=== PATIENT | male | born 1955 | race Caucasian/White ===

== ENCOUNTER 2017-04-13 17:51 | Inpatient (IN) | payer MEDICARE, MEDICAID ==
[~2017-04-13] VITALS: Ht 190.5 cm; Wt 107.2 kg
--- NOTE | 2017-04-13 18:00 | NUR ---
PT BIBRA TO ER BED 11. C/O CHEST PAIN R/T NECK AND BACK THAT STARTED 3-4 HOURS AGO AND IS WORST NOW. 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 GOWNED AND PLACED ON MONITOR. AWAITING MD WOODALL.
--- NOTE | 2017-04-13 18:00 | NUR ---
DR JONES AT BEDSIDE FOR EVAL.
[2017-04-13 18:19] LABS: BASOPHILS # (AUTO) 0.1 /CMM (0.0-0.2); BASOPHILS % (AUTO) 1.6 % (0.0-2.0); EOSINOPHILS # (AUTO) 0.5 /CMM (0.0-0.7); EOSINOPHILS % (AUTO) 7.1 % (0.0-6.0); HEMATOCRIT 45 % (39-51); LYMPHOCYTES # (AUTO) 2.5 /CMM (0.8-4.8); MEAN CORPUSCULAR HEMOGLOBIN 29 PG (26.0-33.0); MEAN CORPUSCULAR HGB CONC 34 g/dl (31.0-36.0); MEAN CORPUSCULAR VOLUME 88 fL (80-96); MONOCYTES # (AUTO) 0.6 /CMM (0.1-1.30); MONOCYTES % (AUTO) 7.5 % (2.0-12.0); NEUTROPHILS % (AUTO) 51.8 % (43.0-81.0); PLATELET COUNT (AUTO) 225 /CMM (150-450); RDW COEFFICIENT OF VARIATION 12.9 (11.5-15.0); RED BLOOD CELL COUNT(AUTO) 5.09 MIL/uL (4.5-6.0); WHITE BLOOD COUNT (AUTO) 7.7 K/uL (4.3-11.0)
[2017-04-13] MEDS ORDERED: DIGO250T PO (18:19)
[2017-04-13] MEDS ORDERED: COLC0.6C3 PO (18:19)
[2017-04-13] MEDS ORDERED: ALLO300T2 PO (18:19)
[2017-04-13] MEDS ORDERED: ATOR40TA PO (18:19)
[2017-04-13] MEDS ORDERED: CLOP75TA2 PO (18:19)
[2017-04-13] MEDS ORDERED: DIPH25CA6 PO (18:19)
[2017-04-13] MEDS ORDERED: WARF7.5T23 PO (18:19)
[2017-04-13] MEDS ORDERED: FURO-145 PO (18:19)
[2017-04-13] MEDS ORDERED: LISI-607 PO (18:19)
[2017-04-13] MEDS ORDERED: DIVA500T54 PO (18:20)
[2017-04-13] MEDS ORDERED: QUET200T PO (18:20)
[2017-04-13 18:33] LABS: CALCIUM, SERUM 8.8 mg/dL (8.5-10.1); CARBON DIOXIDE 23 mmol/L (21-32); CHLORIDE 105 mmol/L (98-107); CREATININE 1.2 mg/dL (0.6-1.3); GLUCOSE 83 mg/dL (74-106); POTASSIUM 3.7 mmol/L (3.5-5.1); SODIUM SERUM 138 mmol/L (136-145); UREA NITROGEN, BLOOD 12 mg/dL (7-18)
[2017-04-13] MEDS ORDERED: MORPHINE SULFATE INJ 4 MG/ML DISP.SYRIN ONE (18:39)
[2017-04-13 18:41] LABS: TROPONIN I < 0.017 ng/mL (0.00-0.056)
--- NOTE | 2017-04-13 18:42 | NUR ---
PT STILL C/O 8/[address] JONES AWARE. VERBAL ORDER FOR MORPHINE 4MG IVP. CARRIED OUT.
[2017-04-13 18:44] LABS: INR 1.78 (0.87-1.13)
[2017-04-13 18:45] LABS: B-TYPE NATRIURETIC PEPTIDE 1210 PG/ML (0-125)
--- NOTE | 2017-04-13 19:02 | NUR ---
PAGED DR TOVAR FOR PANEL ADMISSION
[2017-04-13] MEDS ORDERED: MORPHINE SULFATE INJ 10 MG/ML DISP.SYRIN IV ONE (19:30)
[2017-04-13 20:45] VITALS: BP 161/85
--- NOTE | 2017-04-13 20:45 | NUR ---
RN OPEN NOTES RECEIVED PATIENT FROM ER VIA GURRIGO. A/O X4. NO SIGNS OF DISTRESS OR DISCOMFORT. BREATHING EVEN AND UNLABORED. IV ACCESS IN LFA PATENT AND INTACT, NO SIGNS OF REDNESS OR INFILTRATION. ORIENTED PATIENT TO UNIT AND ROOM. ATTACHED TELE MONITORING WITH AFIB 66 NOTED. BED IN LOW LOCKED POSITION WITH SIDE RAILS X2. CALL LIGHT WITHIN REACH. WILL CONTINUE TO MONITOR.
--- NOTE | 2017-04-13 20:55 | NUR ---
REPORT GIVEN TO LEATHA. PT TRANSFERED TO [facility]. STABLE CONDITION.
[2017-04-13 21:00] VITALS: BP 119/78
[2017-04-13] MEDS ORDERED: ZOLPIDEM TARTRATE 5 MG TABLET PO PRN (21:00)
[2017-04-13] MEDS ORDERED: ACETAMINOPHEN 325 MG TABLET PO PRN (21:00)
[2017-04-13] MEDS ORDERED: MAG HYDROX/AL HYDROX/SIMETH 30 ML UDC PO PRN (21:00)
[2017-04-13] MEDS ORDERED: diphenhydrAMINE HCL 25 MG CAPSULE PO PRN (21:00)
[2017-04-13] MEDS ORDERED: ONDANSETRON HCL/PF 4 MG/2 ML VIAL IVP PRN (21:00)
[2017-04-13] MEDS ORDERED: Z GUARD REMEDY 2 OZ OINT TP PRN (21:00)
[2017-04-13] MEDS ORDERED: COLCHICINE 0.6 MG TABLET PO PRN (21:30)
[2017-04-13] MEDS: CLOPIDOGREL BISULFATE 75 MG TABLET PO SCH (21:50)
[2017-04-13] MEDS: DIVALPROEX SODIUM 500 MG TABLET.DR PO SCH (21:50)
[2017-04-13] MEDS: ATORVASTATIN 40 MG TABLET PO SCH (21:50)
[2017-04-13] MEDS: QUETIAPINE FUMARATE 100 MG TABLET PO SCH (21:50)
[2017-04-13] MEDS: LISINOPRIL (5MG) 5 MG TABLET PO SCH (21:50)
[2017-04-13] MEDS: HYDROCODONE/APAP 5/325MG 1 EACH TABLET PO PRN (21:51)
--- NOTE | 2017-04-13 21:51 | NUR ---
RN NOTES ADMINISTERED NORCO 5/325 PO ORDERED FOR CHEST PAIN. WILL CONTINUE TO MONITOR.
[2017-04-13] MEDS: FUROSEMIDE 20 MG TABLET PO SCH (22:00)
[2017-04-14] VITALS: BP 124/69
[2017-04-14] MEDS ORDERED: MORPHINE SULFATE INJ 2 MG/ML DISP.SYRIN ONE ×2 (00:22→04:30)
[2017-04-14] MEDS: MORPHINE SULFATE INJ 2 MG/ML DISP.SYRIN IV PRN ×6 (00:28→23:34)
--- NOTE | 2017-04-14 00:28 | NUR ---
RN NOTES ADMINISTERED MORPHINE 2 MG ORDERED FOR CHEST PAIN. VSS. WILL CONTINUE TO MONITOR.
[2017-04-14 04:00] VITALS: BP 118/75
--- NOTE | 2017-04-14 04:33 | NUR ---
RN NOTES ADMINISTERED MORPHINE 2 MG IV ORDERED FOR CHEST PAIN. VSS. WILL CONTINUE TO MONITOR.
--- NOTE | 2017-04-14 06:54 | NUR ---
RN CLOSING NOTES PATIENT RESTING IN BED. A/O X4. NO SIGNS OF DISTRESS OR DISCOMFORT. BREATHING EVEN AND UNLABORED. ON TELE MONITORING WITH AFIB 50 NOTED. IV ACCESS IN LFA PATENT AND INTACT, NO SIGNS OF REDNESS OR INFILTRATION. ALL NEEDS MET. NO SIGNIFICANT CHANGES THROUGH THE NIGHT. BED IN LOW LOCKED POSITION WITH SIDE RAILS X2. CALL LIGHT WITHIN REACH. WILL ENDORSE TO AM SHIFT FOR PROSPER.
[2017-04-14 07:13] LABS: BASOPHILS % (AUTO) 0.6 % (0.0-2.0); EOSINOPHILS # (AUTO) 0.6 /CMM (0.0-0.7); EOSINOPHILS % (AUTO) 8.5 % (0.0-6.0); HEMATOCRIT 44 % (39-51); HEMOGLOBIN 14.8 g/dL (13.5-17.5); LYMPHOCYTES # (AUTO) 2.8 /CMM (0.8-4.8); LYMPHOCYTES % (AUTO) 42.7 % (20.0-44.0); MEAN CORPUSCULAR HEMOGLOBIN 30 PG (26.0-33.0); MEAN CORPUSCULAR HGB CONC 34 g/dl (31.0-36.0); MEAN CORPUSCULAR VOLUME 89 fL (80-96); MONOCYTES # (AUTO) 0.4 /CMM (0.1-1.30); MONOCYTES % (AUTO) 6.1 % (2.0-12.0); NEUTROPHILS # (AUTO) 2.7 /CMM (1.8-8.9); NEUTROPHILS % (AUTO) 42.1 % (43.0-81.0); PLATELET COUNT (AUTO) 187 /CMM (150-450); RED BLOOD CELL COUNT(AUTO) 4.89 MIL/uL (4.5-6.0); WHITE BLOOD COUNT (AUTO) 6.5 K/uL (4.3-11.0)
[2017-04-14 07:23] VITALS: BP 114/78
--- NOTE | 2017-04-14 07:30 | NUR ---
TECHNICAL TRAINER NOTES: - Received on bed , verbally responsive,oriented x 4, claimed to have the recurring chest pain again & patient was informed of the next time PRN pain med will be given, & patient agreed.
[2017-04-14 07:54] LABS: CALCIUM, SERUM 8.3 mg/dL (8.5-10.1); CREATININE 1.2 mg/dL (0.6-1.3); MAGNESIUM 1.6 mg/dL (1.8-2.4); PHOSPHORUS 3.5 mg/dL (2.5-4.9); POTASSIUM 4.1 mmol/L (3.5-5.1)
[2017-04-14] MEDS: QUETIAPINE FUMARATE 100 MG TABLET PO SCH ×2 (08:06→16:37)
[2017-04-14] MEDS: DIVALPROEX SODIUM 500 MG TABLET.DR PO SCH ×2 (08:06→16:37)
[2017-04-14] MEDS: ALLOPURINOL 100 MG TABLET PO SCH (08:07)
[2017-04-14] MEDS: Magnesium 1GM/D5W 100ML PREMIX 100 ML IV SCH ×2 (11:16→12:38)
[2017-04-14 12:00] VITALS: BP 130/86
[2017-04-14] MEDS: DIGOXIN 0.25 MG TABLET PO SCH (12:39)
--- NOTE | 2017-04-14 14:26 | NUR ---
PRODUCT ASSEMBLER Notes: - Visited by Dr. Ortega, grain drier & was also explained on plan re: D/C tele & will be observed till Monday04/17/17 , patient has been ambulating to bathroom without problems., tho' had been claiming that MorphineSulfate only gives very little.
--- NOTE | 2017-04-14 15:30 | NUR ---
-SCHOLARSHIP COUNSELOR Notes: - Telemetry was d/cd per MD 'S orders, patient claimed reduced pain tho' not much." Patient still in bed , tho' had been to bathroom 3x without dizziness.
[2017-04-14 16:00] VITALS: BP 134/90
[2017-04-14] MEDS: WARFARIN SODIUM 7.5 MG TABLET PO SCH (16:38)
--- NOTE | 2017-04-14 18:22 | NUR ---
RN NOTES; - patient completed dinner & tolerated, was given PRN morphine per request, remained to be on room air, non-labored respirations, & was made comfortable.
--- NOTE | 2017-04-14 19:30 | NUR ---
MS RN INITIAL NOTE RECEIVED PT AWAKE AND ALERT, ORIENTED X3, COMPLAINS OF MILD PAIN IN THE CHEST AREA, TROP NEGATIVE, CXRAY SHOWS NO CARDIOPULMONARY DISEASE, CARDIO CONSULT DONE BY DR. SANDS, TELE D/C, ORDER FOR MORPHINE IN PLACE, PT STATES PAIN IS RELIEVED BY PAIN MEDICATION, POSSIBLE STRESS TEST ON MONDAY PER AM NURSE, PT IS STABLE, CLEAN/DRY AND COMFORTABLE, SAFETY MEASURES WILL BE MAINTAINED AT ALL TIMES, NEEDS WILL BE ANTICIPATED AND ATTENDED TO PROMPTLY.
[2017-04-14 20:00] VITALS: BP 106/67
[2017-04-14] MEDS: LISINOPRIL (5MG) 5 MG TABLET PO SCH (21:38)
[2017-04-14] MEDS: ATORVASTATIN 40 MG TABLET PO SCH (21:55)
[2017-04-14] MEDS: FUROSEMIDE 20 MG TABLET PO SCH (21:55)
[2017-04-14] MEDS: CLOPIDOGREL BISULFATE 75 MG TABLET PO SCH (21:55)
[2017-04-15] MEDS: MORPHINE SULFATE INJ 2 MG/ML DISP.SYRIN IV PRN ×3 (05:57→17:49)
--- NOTE | 2017-04-15 06:27 | NUR ---
MS RN CLOSING NOTE PT REMAINED STABLE DURING HEALTHCARE RECEPTIONIST, NO SIGNIFICANT CHANGE IN CONDITION NOTED, WILL ENDORSE TO INCOMING NURSE FOR PROSPER.
[2017-04-15 07:04] LABS: CALCIUM, SERUM 8.4 mg/dL (8.5-10.1); CREATININE 1.3 mg/dL (0.6-1.3)
--- NOTE | 2017-04-15 07:22 | NUR ---
MS/RN Patient received Patient received from night clerk. No new concerns or needs, continues to ask for IV pain medications, next due at 10:00. Patient made aware of schedule. Call light within reach, will continue to monitor.
[2017-04-15 08:00] VITALS: BP 128/84
[2017-04-15] MEDS: QUETIAPINE FUMARATE 100 MG TABLET PO SCH ×2 (08:29→16:27)
[2017-04-15] MEDS: DIVALPROEX SODIUM 500 MG TABLET.DR PO SCH ×2 (08:29→16:27)
[2017-04-15] MEDS: ALLOPURINOL 100 MG TABLET PO SCH (08:30)
--- NOTE | 2017-04-15 08:37 | NUR ---
MS/purchasing clerk Morning medication administered as ordered.
--- NOTE | 2017-04-15 10:10 | NUR ---
MS/RN S/B Samuel Helsm ROUGH ROUNDER MACHINE Seen by ROUGH ROUNDER MACHINE - labs ordered for tomorrow.
[2017-04-15 10:11] LABS: INR 1.37 (0.87-1.13)
--- NOTE | 2017-04-15 10:30 | NUR ---
MS/RN CTA Chest CTA chest ordered to rule out dissection. Consent form signed, new heplock placed on right AC.
[2017-04-15] MEDS ORDERED: IOHEXOL-350 100 ML VIAL IV ONE (11:40)
[2017-04-15] MEDS ORDERED: CT SWABBABLE VALVE TRANS SET 1 EA INFUS.SET MC ONE (11:40)
[2017-04-15] MEDS ORDERED: IV NS 0.9% 250 ML IV ONE (11:40)
--- NOTE | 2017-04-15 11:55 | NUR ---
MS/RN Off floor Patient off floor at this time for CTA. Chart containing consent with patient.
--- NOTE | 2017-04-15 12:17 | NUR ---
MS/RN CTA Patient back in room following CTA chest, awaiting results.
[2017-04-15] MEDS: DIGOXIN 0.25 MG TABLET PO SCH (13:00)
--- NOTE | 2017-04-15 14:01 | NUR ---
MS/RN CTA result CTA resulted as negative.
[2017-04-15 16:00] VITALS: BP 133/95
[2017-04-15] MEDS: WARFARIN SODIUM 7.5 MG TABLET PO SCH (16:29)
--- NOTE | 2017-04-15 17:55 | NUR ---
MS/RN Morphine 2mg morphine administered for pain scale 8/10, will monitor effectiveness.
--- NOTE | 2017-04-15 18:20 | NUR ---
MS/RN End note Pain scale now decreased to 4/10, patient appears more comfortable. No further needs at this time. Will continue to monitor and endorse to helicopter crew chief.
[2017-04-15] MEDS: HYDROCODONE/APAP 5/325MG 1 EACH TABLET PO PRN (19:39)
[2017-04-15] MEDS: FUROSEMIDE 20 MG TABLET PO SCH (19:46)
--- NOTE | 2017-04-15 19:48 | NUR ---
RN NOTES PATIENT BEEN DECLINING LASIX 20 MG PO AT 2200. PATIENT EXPLAINED TAKES LASIX IN THE MORNING NOT AT NIGHT. CONVINCED PATIENT TO TAKE ONE DOSE NOW AND WILL RE-SCHEDULE LASIX IN AM. EDUCATED PATIENT ON RISKS AND BENEFITS, PATIENT VERBALIZED UNDERSTANDING AND AGREED.
[2017-04-15 20:00] VITALS: BP 131/72
--- NOTE | 2017-04-15 20:00 | NUR ---
RN NOTES PATIENT IN BED, ALERT AND ORIENTED X4, CALM, NO SOB, COMPLAINING OF CHEST PAIN OF 7/10, SPO2 AT ROOM AIR 96%. TROPONIN IS NEGATIVE AND CTA CHEST NEGATIVE. REQUESTING NORCO. RIGHT AC SALINE LOCK IS PATENT AND FLUSHED. AMBULATES WITH STEADY GAIT. NEEDS ATTENDED, CALL LIGHT WITHIN REACH.
[2017-04-15 20:09] VITALS: BP 131/72
[2017-04-15] MEDS: MAGNESIUM HYDROXIDE 30 ML UDC PO PRN (20:53)
[2017-04-15] MEDS: LISINOPRIL (5MG) 5 MG TABLET PO SCH (21:30)
[2017-04-15] MEDS: ATORVASTATIN 40 MG TABLET PO SCH (21:30)
[2017-04-15] MEDS: CLOPIDOGREL BISULFATE 75 MG TABLET PO SCH (21:30)
[2017-04-16] MEDS: MORPHINE SULFATE INJ 2 MG/ML DISP.SYRIN IV PRN ×3 (02:53→20:42)
--- NOTE | 2017-04-16 02:59 | NUR ---
RN NOTES COMPLAINING OF CHEST PAIN OF 05/14, BP WNL, SPO2 AT ROOM AIR 97%, GIVEN MORPHINE 2 MG IVP, WILL CONTINUE TO MONITOR.
--- NOTE | 2017-04-16 06:48 | NUR ---
RN NOTES PATIENT IN BED, ALERT AND AWAKE, NO RESPIRATORY DISTRESS, COMPLAINED OF CHEST PAIN, TROPONIN NEGATIVE, RULED FOR [place], RULED FOR PE. PROVIDED PAIN MEDICATION DURING SHIFT. ALL NEEDS ATTENDED, COMPLIANT WITH MEDICATION. CALL LIGHT WITHIN REACH.
[2017-04-16 06:59] LABS: BASOPHILS % (AUTO) 0.7 % (0.0-2.0); EOSINOPHILS # (AUTO) 0.5 /CMM (0.0-0.7); EOSINOPHILS % (AUTO) 8.2 % (0.0-6.0); HEMATOCRIT 47 % (39-51); HEMOGLOBIN 15.6 g/dL (13.5-17.5); LYMPHOCYTES # (AUTO) 2.5 /CMM (0.8-4.8); LYMPHOCYTES % (AUTO) 37.3 % (20.0-44.0); MEAN CORPUSCULAR HEMOGLOBIN 30 PG (26.0-33.0); MEAN CORPUSCULAR HGB CONC 33 g/dl (31.0-36.0); MEAN CORPUSCULAR VOLUME 89 fL (80-96); MONOCYTES # (AUTO) 0.5 /CMM (0.1-1.30); MONOCYTES % (AUTO) 7.8 % (2.0-12.0); NEUTROPHILS # (AUTO) 3.1 /CMM (1.8-8.9); PLATELET COUNT (AUTO) 191 /CMM (150-450); RDW COEFFICIENT OF VARIATION 13.8 (11.5-15.0); RED BLOOD CELL COUNT(AUTO) 5.23 MIL/uL (4.5-6.0); WHITE BLOOD COUNT (AUTO) 6.7 K/uL (4.3-11.0)
--- NOTE | 2017-04-16 07:10 | NUR ---
MS RN OPENING NOTES RECEIVED PT. FROM NIGHTSHIFT NURSE IN STABLE CONDITION. PT. IS A/O X4. NO SOB OR SIGNS OF DISTRESS NOTED. BREATHING IS EVEN AND UNLABORED. PT. DENIES ANY CHEST PAIN T THIS TIME. IV PRESENT ON LEFT FOREARM 29G SL. IV IS PATENT TO NS FLUSH AND INTACT. NO REDNESS OR SIGNS OF INFILTRATION NOTED. BED IN LOW LOCKED POSITION, SIDE RAILS UP X2, CALL LIGHT WITHIN REACH. WILL CONTINUE TO MONITOR.
[2017-04-16 07:13] LABS: CALCIUM, SERUM 8.8 mg/dL (8.5-10.1); CREATININE 1.1 mg/dL (0.6-1.3); POTASSIUM 3.8 mmol/L (3.5-5.1)
[2017-04-16 08:00] VITALS: BP 124/88
[2017-04-16] MEDS: DIVALPROEX SODIUM 500 MG TABLET.DR PO SCH ×2 (09:26→17:19)
[2017-04-16] MEDS: QUETIAPINE FUMARATE 100 MG TABLET PO SCH ×2 (09:27→17:19)
[2017-04-16] MEDS: FUROSEMIDE 20 MG TABLET PO SCH (09:27)
[2017-04-16] MEDS: ALLOPURINOL 100 MG TABLET PO SCH (09:31)
[2017-04-16] MEDS: DIGOXIN 0.25 MG TABLET PO SCH (12:40)
[2017-04-16 16:26] VITALS: BP 124/85
[2017-04-16 17:15] LABS: INR 1.93 (0.87-1.13); PROTHROMBIN TIME 21.5 SECS (9.5-12.7)
[2017-04-16] MEDS: WARFARIN SODIUM 7.5 MG TABLET PO SCH (17:22)
--- NOTE | 2017-04-16 18:40 | NUR ---
MS RN CLOSING NOTES PT. REMAINS IN STABLE CONDITION. ALL NEEDS WERE MET DURING SHIFT AND ORDERS CARRIED OUT ACCORDINGLY. PT. COMPLAINED OF CHEST PAIN ONE TIME DURING SHIFT BUT IT WAS RESOLVED AFTER PRN ADMINISTRATION OF MORPHINE 2MG. PT. DENIES ANY PAIN AT THIS TIME. ALL SAFETY MEASURES REMAIN IN PLACE. WILL ENDORSE TO NIGHTSHIFT NURSE FOR PROSPER
[2017-04-16 20:00] VITALS: BP 125/77
[2017-04-16] MEDS: CLOPIDOGREL BISULFATE 75 MG TABLET PO SCH (22:58)
[2017-04-16] MEDS: ATORVASTATIN 40 MG TABLET PO SCH (22:58)
[2017-04-16] MEDS: LISINOPRIL (5MG) 5 MG TABLET PO SCH (22:58)
[2017-04-17] MEDS: MORPHINE SULFATE INJ 2 MG/ML DISP.SYRIN IV PRN ×3 (04:36→20:04)
--- NOTE | 2017-04-17 06:09 | NUR ---
RN CLOSING NOTES No significant change in condition during shift. Pt slept comfortably. No apparent distress noted. Due meds given as ordered, pain meds given as ordered. All needs attended.reminded patient of his procedure today. Will continue to monitor.
[2017-04-17 06:31] LABS: BASOPHILS # (AUTO) 0.1 /CMM (0.0-0.2); BASOPHILS % (AUTO) 0.7 % (0.0-2.0); EOSINOPHILS # (AUTO) 0.6 /CMM (0.0-0.7); EOSINOPHILS % (AUTO) 7.4 % (0.0-6.0); HEMATOCRIT 47 % (39-51); HEMOGLOBIN 15.7 g/dL (13.5-17.5); LYMPHOCYTES # (AUTO) 2.7 /CMM (0.8-4.8); LYMPHOCYTES % (AUTO) 35.4 % (20.0-44.0); MEAN CORPUSCULAR HEMOGLOBIN 30 PG (26.0-33.0); MEAN CORPUSCULAR HGB CONC 33 g/dl (31.0-36.0); MEAN CORPUSCULAR VOLUME 89 fL (80-96); MONOCYTES # (AUTO) 0.7 /CMM (0.1-1.30); NEUTROPHILS # (AUTO) 3.6 /CMM (1.8-8.9); NEUTROPHILS % (AUTO) 47.5 % (43.0-81.0); PLATELET COUNT (AUTO) 193 /CMM (150-450); RDW COEFFICIENT OF VARIATION 13.6 (11.5-15.0); RED BLOOD CELL COUNT(AUTO) 5.26 MIL/uL (4.5-6.0); WHITE BLOOD COUNT (AUTO) 7.6 K/uL (4.3-11.0)
[2017-04-17 07:00] LABS: CALCIUM, SERUM 8.9 mg/dL (8.5-10.1); CREATININE 1.3 mg/dL (0.6-1.3)
--- NOTE | 2017-04-17 07:30 | NUR ---
MS/RN Patient received Patient received from collar cutter. NPO at this time for angusan later today, consent form signed and placed in fron of chart. All needs attended, will continue to monitor and ensure safety.
[2017-04-17 08:00] VITALS: BP 119/84
--- NOTE | 2017-04-17 08:20 | NUR ---
MS/RN Darrick Yates from [employer] called. Stated that patient was okay to eat light dist, but no caffeine.
[2017-04-17] MEDS: QUETIAPINE FUMARATE 100 MG TABLET PO SCH ×2 (08:48→17:12)
[2017-04-17] MEDS: DIVALPROEX SODIUM 500 MG TABLET.DR PO SCH ×2 (08:49→17:12)
[2017-04-17] MEDS: ALLOPURINOL 100 MG TABLET PO SCH (08:49)
[2017-04-17] MEDS: FUROSEMIDE 20 MG TABLET PO SCH (08:49)
--- NOTE | 2017-04-17 09:00 | NUR ---
MS/RN Medications Morning medications given with small sips of water.
--- NOTE | 2017-04-17 12:20 | NUR ---
MS/RN Digoxin Digoxin on hold until patient is back from stress test.
[2017-04-17 12:25] LABS: INR 2.02 (0.87-1.13); PROTHROMBIN TIME 22.6 SECS (9.5-12.7)
[2017-04-17] MEDS: DIGOXIN 0.25 MG TABLET PO SCH (13:00)
[2017-04-17] MEDS ORDERED: REGADENOSON 0.4 MG/5 ML DISP.SYRIN IVP ONE (13:00)
--- NOTE | 2017-04-17 14:00 | NUR ---
MS/RN Naheed Patient off floor for naheed.
[2017-04-17 16:21] VITALS: BP 113/74
[2017-04-17] MEDS: WARFARIN SODIUM 7.5 MG TABLET PO SCH (17:13)
[2017-04-17] MEDS: MAGNESIUM HYDROXIDE 30 ML UDC PO PRN (18:04)
--- NOTE | 2017-04-17 18:29 | NUR ---
MS/RN End note Patient back from [facility], awaiting final result. No further complaints of pain. Will continue to monitor and ensure safety.
--- NOTE | 2017-04-17 19:30 | NUR ---
RN NOTE; RECEIVED PT IN BED LAYING DOWN , BREATHING EVENLY. NO SOB. NAD. SKIN WARM AND DRY. STILL W/ C/O CHEST PAIN RADIATING TO LEFT POST. SHOULDER. TO BE MEDICATED ORDERED. DENIED SOB. PT REACHING WAS PROVIDED AND ADVISED TO INFORM THE NURSE FOR ANY CHANGES .NEEDS ATTENDED . CALL LIGHT WITHIN REACH. WILL CONT TO MONITOR .
[2017-04-17 19:36] VITALS: BP 124/73
[2017-04-17 20:00] VITALS: BP 124/73
--- NOTE | 2017-04-17 20:06 | NUR ---
MORPHINE GIVEN ORDERED FOR C/O CHEST PAIN .WILL CONT TO MONITOR.
[2017-04-17] MEDS: LISINOPRIL (5MG) 5 MG TABLET PO SCH (21:39)
[2017-04-17] MEDS: ATORVASTATIN 40 MG TABLET PO SCH (21:39)
[2017-04-17] MEDS: CLOPIDOGREL BISULFATE 75 MG TABLET PO SCH (21:39)
--- NOTE | 2017-04-18 06:19 | NUR ---
RN NOTE PT IN BED SLEEPING, AROUSES EASILY. BREATHING EVENLY. NO ACUTE EVENT DURING THE NIGHT. NO MORE C/O CHEST PAIN AFTER RECEIVING MORPHINE . NEEDS ATTENDED. ASSISTED W/ ADLS. CALL LIGHT WITHIN REACH. WILL CONT TO MONITOR AND WILL ENDORSE TO AM SHIFT FOR PROSPER.
[2017-04-18] MEDS: MORPHINE SULFATE INJ 2 MG/ML DISP.SYRIN IV PRN ×2 (07:10→14:24)
--- NOTE | 2017-04-18 07:13 | NUR ---
MORPHINE GIVEN FOR C/O CHEST PAIN. WILL CONT TO MONITOR
--- NOTE | 2017-04-18 07:27 | NUR ---
MS/RN OPENING NOTE RESIDENT RECEIVED FROM MANAGER ENGLISH IN STABLE CONDITION. COMPLAINTS OF CHEST PAIN, MORPHINE GIVEN BY MANAGER ENGLISH AT 0710 TOLERATING WELL. NO IMMEDIATE NEEDS AT THIS TIME. CALL LIGHT IN REACH. WILL CONTINUE TO MONITOR TO ENSURE SAFETY.
[2017-04-18 08:00] VITALS: BP 110/68
[2017-04-18] MEDS: DIVALPROEX SODIUM 500 MG TABLET.DR PO SCH (08:17)
[2017-04-18] MEDS: FUROSEMIDE 20 MG TABLET PO SCH (08:17)
[2017-04-18] MEDS: ALLOPURINOL 100 MG TABLET PO SCH (08:19)
[2017-04-18] MEDS: QUETIAPINE FUMARATE 100 MG TABLET PO SCH (08:19)
[2017-04-18 08:54] VITALS: BP 110/68
--- NOTE | 2017-04-18 10:00 | NUR ---
MS/RN Constipation Patient complaining of constipation, stating that laxative already given to him is not working. Warm prune juice given with good result.
[2017-04-18] MEDS ORDERED: DIVA500T2 PO (10:06)
[2017-04-18] MEDS ORDERED: ATOR40TA PO (10:06)
[2017-04-18] MEDS ORDERED: WARF7.5T23 PO (10:06)
[2017-04-18] MEDS ORDERED: QUET100T PO (10:06)
[2017-04-18] MEDS ORDERED: Digoxin PO (10:06)
[2017-04-18] MEDS ORDERED: CLOP75TA2 PO (10:06)
[2017-04-18] MEDS ORDERED: LISI5TAB45 PO (10:06)
[2017-04-18] MEDS ORDERED: FURO20TA4 PO (10:06)
[2017-04-18 11:16] LABS: INR 2.41 (0.87-1.13); PROTHROMBIN TIME 27.3 SECS (9.5-12.7)
[2017-04-18] MEDS: DIGOXIN 0.25 MG TABLET PO SCH (12:22)
--- NOTE | 2017-04-18 15:09 | NUR ---
MS/RN SEEN BY DR. BALLESTEROS SEEN BY DR. HERNANDEZ. NO FURTHER ORDERS.
--- NOTE | 2017-04-18 15:10 | NUR ---
MS/RN SEEN BY LYLA INFANTE SEEN BY LYLA MCCOY WITH ORDERS TO BE DISCHARGE HOME.
--- NOTE | 2017-04-18 15:26 | NUR ---
MS/door to door fundraising collector Patient to be discharged to home later this afternoon, has been cleared by Dr Campa as no further cardiac testing is required at this time. Exit care completed and signed by patient. Education provided to patient, instructed to return to the nearest emergency room for any further episodes of pain not relieved by rest. Patient at this time does not have a primary care doctor, instructed on the importance of good follow up care. Information, including telephone numbers of insurance company provided to patient to enable follow up to be made. Patient stated understanding. Heplock and name bands removed. All personal belongings signed for on belongings list. Taxi voucher provided to patient as earlier mentioned to him by social media content manager. Escorted to main lobby by SANJU.
== END 2017-04-18 16:20 | disposition home or self-care (01) | DRG 303 ==
LOC: ER 17:54 → TELE 20:31 → MED 04-14 16:59
PROVIDERS: ADMIT Family Medicine; ATTEND Family Medicine
DX: I25.119 Atherosclerotic heart disease of native coronary artery with unspecified angina pectoris (principal); E83.42 Hypomagnesemia; I25.2 Old myocardial infarction; I48.91 Unspecified atrial fibrillation; Z86.73 Personal history of transient ischemic attack (TIA), and cerebral infarction without residual deficits; Z86.718 Personal history of other venous thrombosis and embolism; Z86.711 Personal history of pulmonary embolism; Z82.3 Family history of stroke; Z82.49 Family history of ischemic heart disease and other diseases of the circulatory system; Z79.01 Long term (current) use of anticoagulants; M10.9 Gout, unspecified; I71.4 Abdominal aortic aneurysm, without rupture; Z83.3 Family history of diabetes mellitus; I70.0 Atherosclerosis of aorta; E78.5 Hyperlipidemia, unspecified; Z88.8 Allergy status to other drugs, medicaments and biological substances; F31.9 Bipolar disorder, unspecified; Z98.61 Coronary angioplasty status
CPT/HCPCS: 36415; 70450-TC; 71010-TC; 80048-TC; 80061-TC; 80162-TC; 83735-TC; 83880; 84100-TC; 84484-TC; 85025-TC; 85610-TC; 85730-TC; 86850-TC; 87081-TC; 93307-TC; A4216; A4606; A9502; J2270; J2785; J3475; J7050; Q9967; Z7610